=== PATIENT | male | born 1960 | race Caucasian/White ===

== ENCOUNTER 2017-12-06 00:52 | Inpatient (IN) | payer OTHER ==
[~2017-12-06] VITALS: Ht 177.8 cm; Wt 95.0 kg
[2017-12-06 01:42] LABS: Basophils # (auto) 0.1 uL; Basophils % (auto) 0.6 % (0.0-2.0); Eosinophils # (auto) 0.3 uL; Eosinophils % (auto) 3.1 % (0.0-7.0); Hematocrit 40.6 % (41.0-53.0); Lymphocytes # (auto) 1.3 uL; Lymphocytes % (auto) 14.4 % (10.0-50.0); Mean Corpuscular Hemoglobin 29.9 pg (28.0-32.0); Mean Corpuscular Hgb Conc. 34.5 g/dL (32.0-36.0); Mean Corpuscular Volume 86.8 fL (80.0-100.0); Monocytes # (auto) 0.7 uL; Monocytes % (auto) 7.2 % (0.0-12.0); Neutrophils # (auto) 6.8 uL; Neutrophils % (auto) 74.7 % (37.0-80.0); Nucleated Red Blood Cells % 0.1 %; Platelet Count (auto) 163 10^3/uL (140-450); Red Blood Cells 4.67 10^6/uL (4.5-5.90); Red Cell Distribution Width 12.8 % (11.8-14.3); White Blood Cell 9.1 10^3/uL (4.4-10.8)
[2017-12-06 01:58] LABS: INR 0.92 (0.9-1.15); Partial Thromboplastin Time 25.2 sec (23.78-33.04); Prothrombin Time 9.9 sec (9.27-12.13)
[2017-12-06 02:03] LABS: Albumin 3.4 g/dL (3.4-5.0); BUN/Creatinine Ratio 16.1; Potassium 4.5 mmol/L (3.5-5.1)
[2017-12-06 02:08] LABS: Bilirubin, Total 0.6 mg/dL (0.2-1.0); Total Protein 7.3 g/dL (6.4-8.2)
[2017-12-06] MEDS ORDERED: ACETAMINOPHEN 325 MG TAB PO ONE (02:45)
[2017-12-06] MEDS ORDERED: ASPirin-EC 325mg tab PO ONE (05:45)
[2017-12-06] MEDS ORDERED: NITROGLYCERIN 0.4 MG SL TAB SL ONE (05:45)
[2017-12-06] MEDS ORDERED: MORPHINE SULFATE 4 MG/ML SYR/VIAL IV ONE (05:45)
[2017-12-06] MEDS ORDERED: NITROGLYCERIN 0.4 MG SL TAB SL PRN (07:15)
[2017-12-06] MEDS ORDERED: MORPHINE SULF INJ 2 MG/ML SYRINGE 1ML IV PRN (07:15)
[2017-12-06] MEDS: LISINOPRIL 20 MG TAB PO SCH (10:05)
[2017-12-06] MEDS: LEVOFLOXACIN 500MG 100 ML IV SCH (10:05)
[2017-12-06] MEDS: METOPROLOL SUCCINATE XL 50 MG TAB PO SCH (10:05)
[2017-12-06] MEDS: SPIRONOLACTONE 25 MG TAB PO SCH (10:05)
[2017-12-06 10:47] LABS: Urine Bacteria NONE SEEN /hpf (None Seen); Urine Blood Negative /uL (Negative); Urine Specific Gravity 1.022 (1.001-1.035); Urine WBC <1 /hpf (0 - 3)
[2017-12-06 17:05] VITALS: BP 132/86
[2017-12-06] MEDS ORDERED: HYDROcodone-ACET 10/325MG TAB PO ONE (18:00)
[2017-12-06] MEDS: ATORVASTATIN 20 MG TAB PO SCH (21:19)
[2017-12-06 22:00] VITALS: BP 117/66
[2017-12-07 05:00] VITALS: BP 134/66
[2017-12-07] MEDS: HYDROcodone-ACET 10/325MG TAB PO PRN ×3 (07:43→18:30)
[2017-12-07 09:00] VITALS: BP 121/66
[2017-12-07] MEDS ORDERED: IOHEXOL 350 MG/ML 100ML IJ ONE (09:01)
[2017-12-07 09:43] VITALS: BP 132/64
[2017-12-07] MEDS ORDERED: ADENOSINE IV STA (09:54)
[2017-12-07] MEDS ORDERED: GIVE UN DILUTED IV STA (09:54)
[2017-12-07] MEDS: ENOXAPARIN SOD 40 MG/0.4 ML SYRINGE SC SCH (10:00)
[2017-12-07] MEDS: BUDESONIDE (INHALATION) 0.5 MG/2 ML NEB NEB SCH ×2 (10:17→18:40)
[2017-12-07 13:13] VITALS: BP 111/60
[2017-12-07] MEDS: IPRATROPIUM BROM 0.5 MG/2.5ML INH SOL NEB SCH ×3 (13:56→18:40)
[2017-12-07] MEDS: ALBUTEROL SULF 2.5 MG/0.5ML(0.5%) NEB SOLN NEB SCH ×3 (13:57→18:40)
[2017-12-07] MEDS ORDERED: ADENOSINE 80 MG in GIVE UN-DILUTED 0 ML IV ONE (14:00)
[2017-12-07 14:26] VITALS: BP 124/60
[2017-12-07] MEDS: LEVOFLOXACIN 500MG 100 ML IV SCH (18:43)
[2017-12-07] MEDS: methylPREDNISolone SOD SUCC 125 MG/2 ML VL IV SCH ×2 (18:43→21:07)
[2017-12-07] MEDS: PANTOPRAZOLE 40 MG TAB PO SCH (18:44)
[2017-12-07] MEDS: SPIRONOLACTONE 25 MG TAB PO SCH (18:44)
[2017-12-07] MEDS: METOPROLOL SUCCINATE XL 50 MG TAB PO SCH (18:45)
[2017-12-07] MEDS: LISINOPRIL 20 MG TAB PO SCH (18:45)
[2017-12-07] MEDS: ATORVASTATIN 20 MG TAB PO SCH (21:08)
[2017-12-07 22:00] VITALS: BP 128/60
[2017-12-08 05:00] VITALS: BP 107/64
[2017-12-08] MEDS: ALBUTEROL SULF 2.5 MG/0.5ML(0.5%) NEB SOLN NEB SCH ×2 (06:17→13:59)
[2017-12-08] MEDS: BUDESONIDE (INHALATION) 0.5 MG/2 ML NEB NEB SCH (06:17)
[2017-12-08] MEDS: IPRATROPIUM BROM 0.5 MG/2.5ML INH SOL NEB SCH ×2 (06:17→13:59)
[2017-12-08] MEDS: HYDROcodone-ACET 10/325MG TAB PO PRN (07:03)
[2017-12-08 08:49] VITALS: BP 107/67
[2017-12-08] MEDS: SPIRONOLACTONE 25 MG TAB PO SCH (09:40)
[2017-12-08] MEDS: methylPREDNISolone SOD SUCC 125 MG/2 ML VL IV SCH (09:40)
[2017-12-08] MEDS: LEVOFLOXACIN 500MG 100 ML IV SCH (09:40)
[2017-12-08] MEDS: PANTOPRAZOLE 40 MG TAB PO SCH (09:41)
[2017-12-08] MEDS: METOPROLOL SUCCINATE XL 50 MG TAB PO SCH (09:41)
[2017-12-08] MEDS: LISINOPRIL 20 MG TAB PO SCH (09:42)
[2017-12-08] MEDS: ENOXAPARIN SOD 40 MG/0.4 ML SYRINGE SC SCH (09:42)
[2017-12-08 13:18] VITALS: BP 107/67
[2017-12-09 11:02] LABS: Hepatitis A Ab IgM Negative; Hepatitis B Core IgM Negative; Hepatitis B Surface Antigen Negative (Negative)
[2017-12-09 11:03] LABS: Hepatitis C Antibody Negative (Negative)
== END 2017-12-08 14:15 | DRG 191 ==
LOC: ER 00:52 → EEVIPCON 00:52 → EDBD 00:52 → TELE 00:53 → TELE-E-ADS 14:31 → EAST 23:24 → TELE-E-ADS 12-07 00:22
PROVIDERS: ADMIT Internal Medicine; ATTEND Internal Medicine
DX: J44.1 Chronic obstructive pulmonary disease with (acute) exacerbation (principal); J98.11 Atelectasis; R06.02 Shortness of breath; I25.10 Atherosclerotic heart disease of native coronary artery without angina pectoris; I50.9 Heart failure, unspecified; K75.9 Inflammatory liver disease, unspecified; E78.00 Pure hypercholesterolemia, unspecified; I11.0 Hypertensive heart disease with heart failure; I25.2 Old myocardial infarction; Z82.49 Family history of ischemic heart disease and other diseases of the circulatory system; Z87.891 Personal history of nicotine dependence; Z95.0 Presence of cardiac pacemaker; Z95.5 Presence of coronary angioplasty implant and graft
CPT/HCPCS: 36415; 71045; 71275; 78452; 80053; 80074; 80320; 81001; 83735; 83880; 84484; 85025; 85610; 85730; 93005; 93017; 94640; 94761; 96372; 96374; J0153; J1956